=== PATIENT | female | born 1995 | race Caucasian/White ===

== ENCOUNTER 2016-08-11 13:12 | Outpatient (CLI) | payer OTHER ==
[2016-08-11] MEDS ORDERED: ALBUTEROL NEB 2.5 MG/3 ML INH ONE (13:37)
== END 2016-08-11 13:13 | disposition home or self-care (01) ==
DX: R06.02 Shortness of breath (principal)
CPT/HCPCS: 94060; 94664; 94729; J7613

== ENCOUNTER 2019-08-22 16:49 | Outpatient (CLI) | payer OTHER ==
[2019-08-22 17:15] LABS: BASOPHILS # (AUTO) 0.1 10^3/uL (0.0-0.1); BASOPHILS % (AUTO) 0.4 %; EOSINOPHILS # (AUTO) 0.1 10^3/uL (0.0-0.7); EOSINOPHILS % (AUTO) 0.6 %; HGB - HEMOGLOBIN 14.3 g/dL (12.0-16.0); LYMPHOCYTES # (AUTO) 3.3 10^3/uL (1.5-3.5); MEAN CORPUSCULAR HEMOGLOBIN 29.5 pg (27.0-31.0); MEAN CORPUSCULAR HGB CONC 34.2 g/dL (32.0-36.0); MEAN CORPUSCULAR VOLUME 86.2 fL (81.0-99.0); MONOCYTES # (AUTO) 0.9 10^3/uL (0.0-1.0); MONOCYTES % (AUTO) 6.4 %; NEUTROPHILS # (AUTO) 9.4 10^3/uL (1.5-6.6); NEUTROPHILS % (AUTO) 68.2 %; PLT - PLATELET COUNT 409 10^3/uL (130-450); RED BLOOD COUNT 4.85 10^6/uL (4.20-5.40); RED CELL DISTRIBUTION WIDTH 13.1 % (12.0-15.0); WHITE BLOOD COUNT 13.8 x10^3/uL (4.8-10.8)
[2019-08-22 17:17] LABS: ALBUMIN 4.3 g/dL (3.2-5.5); ALBUMIN/GLOBULIN RATIO 1.2 (1.0-2.2); BILIRUBIN,TOTAL 0.8 mg/dL (0.2-1.0); CALCIUM 8.8 mg/dL (8.5-10.3); CREATININE 0.7 mg/dL (0.4-1.0); TOTAL PROTEIN 7.8 g/dL (6.7-8.2)
--- NOTE | 2019-08-22 20:43 | Ultrasound Report ---
Reason: RUQ PAIN Procedure Date: 08/22/2019 Accession Number: [id number] / [id number] Procedure: US - Abdomen Limited CPT Code: Addended Final Report FULL RESULT: EXAM: ABDOMEN ULTRASOUND LIMITED, RUQ EXAM DATE: 08/22/2019 08:09 PM. CLINICAL HISTORY: RUQ PAIN. COMPARISON: None. TECHNIQUE: Real-time scanning was performed with static images obtained. FINDINGS: Liver: Normal in size and echotexture. 14.3 cm. Main portal vein flow: Hepatopetal. Gallbladder: There is cholelithiasis with several mobile stones. The gallbladder wall is thickened and edematous, measuring about 7-9 mm in diameter. Reportedly positive sonographic Harp sign. Biliary System: CBD measures 2 mm. No intrahepatic or extrahepatic ductal dilatation. Other: The right kidney is unremarkable without hydronephrosis. The visualized portion of the pancreas is unremarkable. IMPRESSION: Cholelithiasis with findings suspicious for acute cholecystitis. RAD[facility] The call report notification system was initiated by Dr. Elias Crow at 08:38 PM on 08/22/2019. ADDENDUM: 08/22/19 21:09 The above call report findings were discussed with Dr. Banks by Dr. Elias Crow at 09:09 PM on 08/22/2019.
== END 2019-08-22 16:50 | disposition home or self-care (01) ==
LOC: DI 16:49
PROVIDERS: ATTEND Physician Assistant
DX: K80.20 Calculus of gallbladder without cholecystitis without obstruction (principal)
CPT/HCPCS: 36415; 76705; 80053; 83690; 85025

== ENCOUNTER 2019-08-22 21:39 | Observation (INO) | payer OTHER ==
[2019-08-22] MEDS ORDERED: ONDANSETRON 4 MG/2 ML VIAL IVP STA (22:02)
[2019-08-22] MEDS ORDERED: levoFLOXacin 500 MG/100 ML 500 MG/100 ML BAG IV ONE (22:05)
[2019-08-22] MEDS ORDERED: HYDROmorphone 0.5 MG/0.5 ML SYRINGE IVP PRN (22:11)
[2019-08-22] MEDS ORDERED: SODIUM CHLORIDE FLUSH 0.9% 10 ML SYRINGE IVP PRN (22:11)
--- NOTE | 2019-08-22 22:11 | ED Physician Documentation ---
PD HPI ABD PAIN - Stated complaint Stated Complaint: NAUSEA - Chief complaint Chief Complaint: Abd Pain - History obtained from History obtained from: Patient (Pt presents after receiving a call from her outpatient physician who advised her to come to the ER for possible cholecystitis. Pt states she's been having a year of intermittent mid epgiastric/ruq pain radiating into her back, started during but has persisted intermittently. Pain never severe, just dull and aching. Yesterday she had more intense pain and severe nausea so was seen by PCP today who ordered labs and a RUQ US. Per US she has findings c/w cholecystitis. She has a mild leukocytosis, no fever. Denies cp, dyspnea, cough or URI sx, dysuria or other urinary sx, vaginal bleeding.) Review of Systems Constitutional: reports: Reviewed and negative Eyes: reports: Reviewed and negative Ears: reports: Reviewed and negative Nose: reports: Reviewed and negative Throat: reports: Reviewed and negative Cardiac: reports: Reviewed and negative Respiratory: reports: Reviewed and negative GI: reports: Abdominal Pain, Nausea. denies: Abdominal Swelling, Vomiting, Constipation, Diarrhea, Hematemesis, Bloody / black stool : reports: Reviewed and negative Skin: reports: Reviewed and negative PD PAST MEDICAL HISTORY - Past Medical History : Kidney stones Psych: Depression - Past Surgical History Past Surgical History: Yes HEENT: Tonsil/Adenoidectomy - Present Medications Home Medications: Ambulatory Orders Medication Instructions Recorded Confirmed Fluoxetine HCl [Prozac] 10 mg 04/25/15 04/25/15 Phenazopyridine [Pyridium] 200 mg PO TID 5 Days tablet 04/25/15 Sulfamethoxazole/Trimethoprim 1 each PO BID #10 tablet 04/25/15 [Bactrim Ds Tablet] HYDROcod/ACETAM 5/325 [[place] 5/325] 1 ea PO Q6H PRN #15 tablet 12/24/15 Ibuprofen [Motrin] 400 mg PO Q6H PRN #30 tablet 12/24/15 Ondansetron Odt [Zofran] 4 mg TL Q6H PRN #10 tablet 12/24/15 Tamsulosin [Flomax] 0.4 mg PO DAILY #7 capsule 12/24/15 - Allergies Allergies/Adverse Reactions: Allergies Allergy/AdvReac Type Severity Reaction Status Date / Time amoxicillin Allergy Edema Verified 08/22/19 21:57 - Social History Does the pt smoke?: No Smoking Status: Never smoker Does the pt drink ETOH?: No Does the pt have substance abuse?: No - Immunizations Immunizations are current?: Yes PD ED PE NORMAL - Vitals Vital signs reviewed: Yes - General General: Alert and oriented X 3, No acute distress, Well developed/nourished - HEENT HEENT: Atraumatic, Moist mucous membranes - Neck Neck: Supple, no meningeal sign, No adenopathy - Cardiac Cardiac: RRR, No murmur, No gallop, No rub - Respiratory Respiratory: No respiratory distress, Clear bilaterally - Abdomen Abdomen: Normal bowel sounds, Soft, Non distended, No organomegaly, Other (mild RUQ ttp) - Back Back: No CVA TTP - Derm Derm: Normal color, Warm and dry, No rash - Extremities Extremities: No deformity, No tenderness to palpate, Normal ROM s pain, No edema, No calf tenderness / cord - Neuro Neuro: Alert and oriented X 3 Eye Opening: Spontaneous Motor: Obeys Commands Verbal: Oriented GCS Score: 15 Results - Vitals Vitals: Vital Signs - 24 hr 08/22/19 08/22/19 21:45 21:59 Temperature 37.2 C Heart Rate 81 82 Respiratory 16 16 Rate Blood Pressure 123/71 123/91 H O2 Saturation 98 99 Oxygen O2 Source Room air PD MEDICAL DECISION MAKING - ED course Complexity details: reviewed results, re-evaluated patient, considered differential, d/w patient, d/w test consultant ED course: Pt presented after an outpatient RUQ US showed likely cholecystitis. She is afebrile and hemodynamically stable. I d/w the surgeon on-call who plans to take pt in the AM. We will place and IV and given Levaquin/Flagyl given PCN allergy and prn pain control and antiemetics. Pt last ate about 12 hours ago, last drank about 3 hours ago. She will remain NPO. Pt updated on plan and is agreeable to stay for surgical intervention in the AM. Surgeon to place admit orders.
[2019-08-22] MEDS: SODIUM CHLORIDE 0.9% 1,000 ML IV SCH (22:26)
[2019-08-22] MEDS ORDERED: metroNIDAZOLE 500 MG/100 ML 500 MG/100 ML BAG IV SCH (23:00)
[2019-08-22] MEDS ORDERED: ONDANSETRON 4 MG/2 ML VIAL IVP PRN (23:44)
[2019-08-23] MEDS: SODIUM CHLORIDE FLUSH 0.9% 10 ML SYRINGE IVP SCH ×2 (00:31→08:37)
[2019-08-23] MEDS: FAMOTIDINE 20 MG/2 ML SYRINGE IVP SCH ×2 (00:31→08:37)
[2019-08-23 02:50] LABS: HCG UR QUAL NEGATIVE
[2019-08-23 05:04] LABS: BASOPHILS # (AUTO) 0.1 10^3/uL (0.0-0.1); BASOPHILS % (AUTO) 0.7 %; EOSINOPHILS # (AUTO) 0.1 10^3/uL (0.0-0.7); EOSINOPHILS % (AUTO) 1.1 %; HGB - HEMOGLOBIN 12.7 g/dL (12.0-16.0); LYMPHOCYTES # (AUTO) 3.5 10^3/uL (1.5-3.5); LYMPHOCYTES % (AUTO) 33.6 %; MEAN CORPUSCULAR HEMOGLOBIN 29.2 pg (27.0-31.0); MEAN CORPUSCULAR HGB CONC 33.1 g/dL (32.0-36.0); MEAN CORPUSCULAR VOLUME 88.3 fL (81.0-99.0); MEAN PLATELET VOLUME 9.2 fL (7.9-10.8); MONOCYTES # (AUTO) 0.8 10^3/uL (0.0-1.0); MONOCYTES % (AUTO) 7.9 %; NEUTROPHILS # (AUTO) 5.9 10^3/uL (1.5-6.6); NEUTROPHILS % (AUTO) 56.2 %; PLT - PLATELET COUNT 329 10^3/uL (130-450); RED BLOOD COUNT 4.35 10^6/uL (4.20-5.40); RED CELL DISTRIBUTION WIDTH 13.3 % (12.0-15.0); WHITE BLOOD COUNT 10.5 x10^3/uL (4.8-10.8)
[2019-08-23 05:10] LABS: ALBUMIN 3.8 g/dL (3.2-5.5); ALBUMIN/GLOBULIN RATIO 1.2 (1.0-2.2); BILIRUBIN,TOTAL 0.3 mg/dL (0.2-1.0); CALCIUM 8.7 mg/dL (8.5-10.3); CREATININE 0.9 mg/dL (0.4-1.0); TOTAL PROTEIN 7.1 g/dL (6.7-8.2)
[2019-08-23] MEDS ORDERED: metroNIDAZOLE 500 MG/100 ML 500 MG/100 ML BAG IV SCH (06:00)
[2019-08-23] MEDS: SODIUM CHLORIDE 0.9% 1,000 ML IV SCH (08:37)
--- NOTE | 2019-08-23 08:47 | PHARMACY PROGRESS NOTE ---
- Best Possible Medication History Admit Date and Time: 08/22/192210 Processed by: Pharmacy Medication History completed: Yes Secondary Source(s): Prescription bottles, Physician records, Pharmacy records As the person ultimately responsible for medication therapy, providers are able to order a medication from an existing home medication list in [facility] via the "Reconcile Routine" prior to Confirmation of that medication by customer support executive. Such practice is discouraged except when the physician, in their clinical judgment, deems that a medical need exists for a medication without regard to previous use.
--- NOTE | 2019-08-23 09:51 | HISTORY & PHYSICAL EXAMINATION ---
Chief Complaint - Chief Complaint Chief Complaint: RUQ epigastric abdominal pain Abdominal Pain HPI - Admitted From Admitted from: ED - History Obtained From Records Reviewed: RN notes reviewed, Old records reviewed History obtained from: Patient, Other (ER provider) - History of Present Illness Severity at the worst: Moderate Pain Quality: Aching, Cramping Context-Pain started w/: Eating Timing: Gradual onset Duration: Hours: (6), Days: Improved with: Nothing Worsened by: Eating Associated symptoms: Nausea, Vomiting HPI Comment/Other: Amarilis is a very pleaseant 23 yo WF who is 1 yo post who has been having episodes intermittent mid epgiastric/ruq pain radiating into her back, started during but has persisted intermittently. Pain is mild-moderate until this episode, just dull and aching. Yesterday she had more intense pain and severe nausea so was seen by PCP today who ordered labs and a RUQ US. Per US she has findings c/w cholecystitis. She has a mild leukocytosis, no fever. Denies cp, dyspnea, cough or URI sx, dysuria or other urinary sx, vaginal bleeding. She was called and told to go to the ER for evaluation and I was contacted for admission. PMH/PSH - Past Medical History Cardiovascular: positive: None Respiratory: positive: Asthma Neuro: positive: None Endocrine/Autoimmune: positive: None GI: positive: None : positive: Kidney stones Psych: positive: Depression, Anxiety, Obsessive compulsive disorder Musculoskeletal: positive: None Derm: positive: None MRSA Hx?: No - Past Surgical History HEENT: positive: Tonsil/Adenoidectomy Social & Family Hx - Social History Does the pt smoke?: No Smoking Status: Never smoker Does the pt drink ETOH?: No Does the pt have substance abuse?: No - POLST Patient has POLST: No Meds/Allgy - Home Medications Home Medications: Ambulatory Orders Medication Instructions Recorded Confirmed Albuterol Sulfate [Albuterol 2 puffs INH Q4H PRN 08/23/19 08/23/19 Sulfate Hfa] Cetirizine [ZyrTEC] 10 mg PO DAILY 08/23/19 08/23/19 Citalopram Hydrobromide 20 mg PO DAILY 08/23/19 08/23/19 [Citalopram HBr] Fluticasone 44 Mcg [Flovent] 2 puffs INH BID 08/23/19 08/23/19 - Allergies Allergies/Adverse Reactions: Allergies Allergy/AdvReac Type Severity Reaction Status Date / Time amoxicillin Allergy Edema Verified 08/22/19 21:57 Review of Systems - Constitutional Constitutional: reports: Fatigue, Poor appetite - Eyes Eyes: denies: Pain, Irritation - Ears, Nose & Throat Ears, Nose & Throat: denies: Ear pain, Hearing loss - Cardiovascular Cariovascular: denies: Irregular heart rate, Palpitations, Chest pain - Respiratory Respiratory: denies: Cough, Sputum production, Wheezing - Gastrointestinal Gastrointestinal: reports: Abdominal pain (Per HPI) - Genitourinary Genitourinary: denies: Dysuria, Frequency, Urgency - Musculoskeletal Musculoskeletal: denies: Muscle pain, Back pain - All Other Systems All Other Systems: reports: Reviewed and negative Exam - Vital Signs Reviewed Vital Signs: Yes Vital Signs: Vital Signs x48h Temp Pulse Resp BP Pulse Ox 08/23/19 08:00 36.9 C 67 20 118/71 99 08/23/19 05:31 36.8 C 74 16 100/57 L 99 - Physical Exam General Appearance: positive: No acute distress Eyes Bilateral: positive: Normal inspection, No scleral icterus ENT: positive: ENT inspection nml Neck: positive: Nml inspection Respiratory: positive: No respiratory distress, Breath sounds nml Cardiovascular: positive: Regular rate & rhythm Abdomen: positive: Other (Focal tenderness with positive Harp's with pain with RUQ palpation, no peritoneal signs, no R/G/R BS present) Skin: positive: Color nml, No rash, Warm, Dry Extremities: positive: Full ROM, Nml appearance Neurologic/Psychiatric: positive: Oriented x3, Mood/affect nml Results - Lab Results Fish Bones: 08/23/19 04:45 08/23/19 04:45 Other Lab Results: Lab Results x24hrs 08/23/19 08/23/19 08/23/19 Range/Units 04:45 04:45 00:30 WBC 10.5 (4.8-10.8) x10^3/uL RBC 4.35 (4.20-5.40) 10^6/uL Hgb 12.7 (12.0-16.0) g/dL Hct 38.4 (37.0-47.0) % MCV 88.3 (81.0-99.0) fL MCH 29.2 (27.0-31.0) pg MCHC 33.1 (32.0-36.0) g/dL RDW 13.3 (12.0-15.0) % Plt Count 329 (130-450) 10^3/uL MPV 9.2 (7.9-10.8) fL Neut # (Auto) 5.9 (1.5-6.6) 10^3/uL Lymph # (Auto) 3.5 (1.5-3.5) 10^3/uL [place] # (Auto) 0.8 (0.0-1.0) 10^3/uL Eos # (Auto) 0.1 (0.0-0.7) 10^3/uL Baso # (Auto) 0.1 (0.0-0.1) 10^3/uL Absolute Nucleated RBC 0.00 x10^3/uL Nucleated RBC % 0.0 /100WBC Sodium 136 (135-145) mmol/L Potassium 3.9 (3.5-5.0) mmol/L Chloride 102 (101-111) mmol/L Carbon Dioxide 25 (21-32) mmol/L Anion Gap 9.0 (6-13) BUN 12 (6-20) mg/dL Creatinine 0.9 (0.4-1.0) mg/dL Estimated GFR (MDRD) 78 L (>89) Glucose 97 (70-100) mg/dL Calcium 8.7 (8.5-10.3) mg/dL Total Bilirubin 0.3 (0.2-1.0) mg/dL AST 18 (10-42) IU/L ALT 16 (10-60) IU/L Alkaline Phosphatase 66 (42-121) IU/L Total Protein 7.1 (6.7-8.2) g/dL Albumin 3.8 (3.2-5.5) g/dL Globulin 3.3 (2.1-4.2) g/dL Albumin/Globulin Ratio 1.2 (1.0-2.2) Ur Specific [place] 1.020 (1.002-1.030) Urine HCG, Qual NEGATIVE - Diagnostic Imaging Results Diagnostic Imaging Results: positive: Final report reviewed, Read independently Diagnostic Imaging Results Comments: US shows multiple medium sized gall stones with thickened posterior wall of the gallbladder Impression/Plan - Problem List Problem List: Amarilis is a 23 yo WF with acute cholecystitis secondary to gallstones with repeat and worsening attacks over the last year. In depth, discussion with the patient was held. We went through the normal anatomy and physiology, we then discussed the pathophysiology of the disease and lastly the possible etiologies and how her may have affected the development of her stones. We discussed their specific clinical, laboratory and imaging findings. We then went through the indications for the surgery and the alternatives including open vs laparoscopic approach, use of antibiotics vs surgery, and ABX observation and delayed surgery. WE discussed how the surrent COVID pandemic effects our decision making. We reviewed the risks, the benefits and potential short term and intermodal dispatcher complications of each of the options. We went through the success rates of each option as related to clinical and imagining findings. They have expressed understanding of the operations complications including but not limited to bleeding, infection, persistent symptoms, open operation, injury to neighboring structures such as the bile duct/liver/bowel/major arteries and veins, bile leak following surgery, missed or retained common bile duct stones, as well as anesthetic complications including blood clots, heart attack, stroke and were explained to the patient. The patient understands and accepts these risks. Their questions were answered to their satisfaction and they have requested to proceed with surgery and giving her progressive symptoms over the last year it is likely she will continue to to have episodes and they are likely to escalate in nature. Informed consent was obtained.
[2019-08-23] MEDS ORDERED: LIDOCAINE 1%-EPI 1:100000 20 ML MDV ONE (10:12)
[2019-08-23] MEDS ORDERED: LACTATED RINGERS 500 ML IV ONE (10:34)
[2019-08-23] MEDS ORDERED: GLYCOPYRROLATE 1 MG/5 ML VIAL IVP ONE (10:34)
[2019-08-23] MEDS ORDERED: ONDANSETRON 4 MG/2 ML VIAL IVP ONE (10:34)
[2019-08-23] MEDS ORDERED: MIDAZOLAM 2 MG/2 ML VIAL IVP ONE (10:34)
[2019-08-23] MEDS ORDERED: KETOROLAC 30 MG/ML VIAL IVP ONE (10:34)
[2019-08-23] MEDS ORDERED: PROPOFOL 200 MG/20 ML VIAL IVP ONE (10:34)
[2019-08-23] MEDS ORDERED: ROCURONIUM 50 MG/5 ML VIAL IVP ONE (10:34)
[2019-08-23] MEDS ORDERED: PROPOFOL 1000 MG/100 ML 100 ML IV ONE (10:34)
[2019-08-23] MEDS ORDERED: NEOSTIGMINE 1 MG/1 ML 10 ML MDV IVP ONE (10:34)
[2019-08-23] MEDS ORDERED: SCOPOLAMINE PATCH TOP ONE ×2 (10:34)
[2019-08-23] MEDS ORDERED: fentaNYL 250 MCG/5 ML VIAL IVP ONE (10:34)
[2019-08-23] MEDS ORDERED: DEXAMETHASONE 4 MG/ML VIAL IVP ONE (10:34)
[2019-08-23] MEDS ORDERED: LIDOCAINE 1%-EPI 1:100000 20 ML MDV SUBQ ONE (10:54)
--- NOTE | 2019-08-23 11:02 | ANESTHESIA ---
Pre-Anesthesia VS, & Labs - Diagnosis acute cholecystitis - Procedure laparoscopic cholecystectomy Vital Signs: Temp Pulse Resp BP Pulse Ox 36.9 C 67 20 118/71 99 08/23/19 08:00 08/23/19 08:00 08/23/19 08:00 08/23/19 08:00 08/23/19 08:00 Height 5 ft 3 in Weight (kg) 90 kg Body Mass Index 35.1 - Is Patient ?: No - Lab Results Current Lab Results: Laboratory Tests 08/23/19 04:45: Sodium 136, Potassium 3.9, Chloride 102, Carbon Dioxide 25, Anion Gap 9.0, BUN 12, Creatinine 0.9, Estimated GFR (MDRD) 78 L, Glucose 97, Calcium 8.7, Total Bilirubin 0.3, AST 18, ALT 16, Alkaline Phosphatase 66, Total Protein 7.1, Albumin 3.8, Globulin 3.3, Albumin/Globulin Ratio 1.2 08/23/19 04:45: WBC 10.5, RBC 4.35, Hgb 12.7, Hct 38.4, MCV 88.3, MCH 29.2, MCHC 33.1, RDW 13.3, Plt Count 329, MPV 9.2, Neut # (Auto) 5.9, Lymph # (Auto) 3.5, [place] # (Auto) 0.8, Eos # (Auto) 0.1, Baso # (Auto) 0.1, Absolute Nucleated RBC 0.00, Nucleated RBC % 0.0 Lab results reviewed: Yes Fish Bones: 08/23/19 04:45 08/23/19 04:45 Home Medications and Allergies Home Medications: Ambulatory Orders Albuterol Sulfate [Albuterol Sulfate Hfa] 2 puffs INH Q4H PRN 08/23/19 Cetirizine [ZyrTEC] 10 mg PO DAILY 08/23/19 Citalopram Hydrobromide [Citalopram HBr] 20 mg PO DAILY 08/23/19 Fluticasone 44 Mcg [Flovent] 2 puffs INH BID 08/23/19 Active Medications Famotidine (Pepcid) 20 mg IVP BID MANE Last Admin: 08/23/19 08:37 Dose: 20 mg Hydromorphone HCl (Dilaudid Inj Syringe) 0.5 mg IVP Q2H PRN PRN Reason: Pain 8 to 10 Sodium Chloride (Normal Saline 0.9%) 1,000 mls @ 100 mls/hr IV .Q10H MANE Last Admin: 08/23/19 08:37 Dose: 100 mls/hr Levofloxacin (Levaquin 750 Mg/150 Ml) 750 mg in 150 mls @ 100 mls/hr IV Q24H MANE Metronidazole (Flagyl 500 Mg/100 Ml) 500 mg in 100 mls @ 100 mls/hr IV Q8HR [facility] Last Infusion: 08/23/19 08:48 Dose: Infused Ondansetron HCl (Zofran Inj) 4 mg IVP Q4HR PRN PRN Reason: Nausea / Vomiting Last Admin: 08/23/19 08:42 Dose: 4 mg Sodium Chloride (Normal Saline Flush 0.9%) 10 ml IVP PRN PRN PRN Reason: NEEDED PER PROVIDER ORDERS Sodium Chloride (Normal Saline Flush 0.9%) 10 ml IVP 0100,0900,1700 [facility] Last Admin: 08/23/19 08:37 Dose: 10 ml Albuterol Sulfate [Albuterol Sulfate Hfa] 2 puffs INH Q4H PRN 08/23/19 Cetirizine [ZyrTEC] 10 mg PO DAILY 08/23/19 Citalopram Hydrobromide [Citalopram HBr] 20 mg PO DAILY 08/23/19 Fluticasone 44 Mcg [Flovent] 2 puffs INH BID 08/23/19 Allergies/Adverse Reactions: Allergies Allergy/AdvReac Type Severity Reaction Status Date / Time amoxicillin Allergy Edema Verified 08/22/19 21:57 Anes History & Medical History - Anesthetic History Anesthesia Complications: reports: Post-Operative Nausea/Vomiting (hx of motion sickness) Family history of Anesthesia Complications: Denies Family history of Malignant Hyperthermia: Denies - Medical History Cardiovascular: reports: None Pulmonary: reports: Asthma Gastrointestinal: reports: None Urinary: reports: Kidney stones Neuro: reports: None Musculoskeletal: reports: None Endocrine/Autoimmune: reports: None Blood Disorders: reports: None Skin: reports: None Smoking Status: Never smoker Other Past Medical History: obesity - Surgical History Eyes Ears Nose Throat (EENT): Tonsil/Adenoidectomy Exam General: Alert, Oriented x3, Cooperative Dental: WNL Mouth Openin Fingerbreadth Neck Mobility: Normal Mallampati classification: I Thyromental Distance: less than 4 cm Respiratory: Lungs clear Cardiovascular: Regular rate Plan Anesthesia Type: General Consent for Procedure(s) Verified and Reviewed: Yes Code Status: Attempt Resuscitation ASA classification: 2-Mild systemic disease Is this case an emergency?: No
[2019-08-23] MEDS ORDERED: LACTATED RINGERS 1,000 ML IV ONE (11:25)
--- NOTE | 2019-08-23 12:00 | OPERATIVE REPORT ---
Operative Report - General Admit Date: 08/22/19 Pre-Op Diagnosis: acute cholecystitis secondary to cholelithiasis Procedure Performed: Laparoscopic cholecystectomy Post Op Diagnosis: same - Procedure Note Primary Surgeon: Kalina Rao MD Anesthesia Technique: General ET tube Pathology: gallbladder Estimated Blood Loss (mL): 25 Indications: Amarilis is a very pleaseant 23 yo WF who was admitted for acute cholecystitis secondary to cholelithiasis. She is 1 yo post who has been having episodes intermittent mid epgiastric/ruq pain radiating into her back, started during but has persisted intermittently. Pain is mild-moderate until this episode, just dull and aching. Yesterday she had more intense pain and severe nausea so was seen by PCP today who ordered labs and a RUQ US. Per US she has findings c/w cholecystitis. She has a mild leukocytosis, no fever. Denies cp, dyspnea, cough or URI sx, dysuria or other urinary sx, vaginal bleeding. She was called and told to go to the ER for evaluation and I was contacted for admission. Findings: acute inflamed gallbladder and cholethiasis Complications: none - Other Other Information/Narrative: Patient is a 23 yo with the diagnosis of acute cholecystitis secondary to cholelithiasis, the patient was offered laparoscopy cholecystectomy. After discussing the indications, alternatives, risks and potential complications with the patient, informed consent was obtained. The patient was taken to the operating room. After transfer to the operating room, the patient was placed in the supine position. After the induction of adequate general endotracheal anesthesia, the patient was prepped and draped in the usual sterile fashion. A surgical time out was performed confirming the correct patient and procedure. The periumbilical area was anesthetized and a vertical incision was made just below the umbilicus. Dissection with s-retractors was taken down to the midline fascia was identified and incised vertically and the peritoneal cavity entered under direct visualization. A 12 mm cannula was inserted under direct visualization. The abdomen was then insufflated with CO2 to 15 mm Hg pressure. Under direct visualization, one 5 mm epigastric and two 5 mm right subcostal trocars were placed after these areas were anesthetized. The abdomen was inspected and no other obvious cause for the patient's symptoms was identified. The gallbladder was grasped first at the fundus and then at the neck. The gallbladder appeared acutely inflamed. Adhesions were taken down with blunt dissection and hemostasis achieved with cautery. The cystic duct and common bile duct junction was identified and avoided. The cystic duct and cystic artery were dissected out and multiply clipped and transected. The gallbladder was then dissected off of the undersurface of the liver with the cautery and removed via an endo pouch through the umbilical port site. The right upper quadrant was inspected and hemostasis established with the ca utery. The clips sites were visualized and the clips were intact. There was no evidence of bleeding nor bile leak. The area was then irrigated and the fluid aspirated from the abdomen. There were no other abnormalities noted in the abdomen. The abdomen was decompressed of the CO2 and the trocars were removed under direct visualization. The fascia was closed at the umbilicus with the 0 Vicryl stitch and the wounds were irrigated. The skin was closed with 4-0 Monocryl subcuticular sutures.Dermal adhesive dressing was applied as were dry dressings. Patient was then extubated and taken to the PACU in stable condition. The patient tolerated the procedure well. All counts were correct. There were no complications. The specimen was sent to Pathology.
[2019-08-23] MEDS ORDERED: HYDROmorphone 0.5 MG/0.5 ML SYRINGE IVP PRN (12:05)
[2019-08-23] MEDS ORDERED: HYDROcod/ACETAM 10 MG/325 MG TABLET PO PRN (12:05)
[2019-08-23] MEDS ORDERED: ONDANSETRON 4 MG/2 ML VIAL IVP PRN (12:05)
--- NOTE | 2019-08-23 12:10 | Discharge Plan ---
Discharge Plan Problem Reviewed?: Yes Disposition: Home, Self Care Condition: Stable Prescriptions: HYDROcod/ACETAM 5/325 [[place] 5/325] 2 tab PO Q4HR PRN #20 tablet PRN Reason: Pain Diet: Regular Activity Restrictions: Activity as Tolerated Shower Restrictions: No (no bath tubs/soaking for 7 days) Driving Restrictions: Yes (no driving until off pain medication. ) Weight Bearing: Full Weight Instruction Topics: Cholecystectomy Laparoscopic, Cholecystectomy Laparoscopic Dc Additional Instructions or Follow Up instructions: Patient may return to work on Tuesday, September 03, 2019 without restrictions. No Smoking: If you smoke, Please STOP! Call for help. Follow-up with: Marie Banks PA [Primary Care Provider] - 1 Week Beny Rodriguez MD [Provider Admit Priv/Credential] - 2 Weeks
[2019-08-23 15:21] VITALS: BP 125/82
[2019-08-23] MEDS ORDERED: levoFLOXacin 750 MG/150 ML 750 MG/150 ML BAG IV SCH (22:00)
--- NOTE | 2019-08-24 10:17 | PROVIDER PROGRESS NOTE ---
Subjective - General Admit Date: 08/22/19 Procedure Date: 08/23/19 Post Op Days: 1 Procedure Performed: Laparoscopic cholecystectomy - Review of Systems Wound/Incisions: positive: Healing well General: positive: No symptoms HEENT: positive: No symptoms Gastrointestinal: positive: No symptoms. negative: Nausea, Vomiting All Other Systems: positive: Reviewed and negative Objective - Patient Data Reviewed Vital Signs: Yes Weight: Weight 08/22/19 08/23/19 08/24/19 23:59 23:59 23:59 Weight (kg) 90 kg Intake & Output: Intake and Output Totals x24h 08/22/19 08/23/19 08/24/19 23:59 23:59 23:59 Intake Total 1320 Output Total 1500 Balance -180 - Lab Results Lab Results: 08/23/19 04:45 08/23/19 04:45 - Physical Exam Wound/Incisions: positive: Healing well General Appearance: positive: No acute distress Respiratory: positive: Breath sounds nml Cardiovascular: positive: Regular rate & rhythm Abdomen: positive: Non-tender Impression/Plan - Problem List Problem List: Acute Cholecystitis due to cholelithaisis s/p lap kaushal. Patient is doing well, pain controlled no nausea, tolerating clears. OK to discharge home and follow up outpatient clinic
== END 2019-08-23 15:20 | disposition home or self-care (01) ==
LOC: ED 21:39 → MS2 22:11
PROVIDERS: ADMIT Surgery; ATTEND Surgery
PROC: 0FT44ZZ Resection of Gallbladder, Percutaneous Endoscopic Approach (ICD-10-PCS; principal; 2019-08-22)
DX: K80.12 Calculus of gallbladder with acute and chronic cholecystitis without obstruction (principal); J45.909 Unspecified asthma, uncomplicated; E66.9 Obesity, unspecified; Z68.35 Body mass index [BMI] 35.0-35.9, adult
CPT/HCPCS: 36415; 47562; 76705; 80053; 81025; 83690; 85025; 99284; 99285; A9270; G0378; J3010; J3490; J7120

== ENCOUNTER 2019-12-28 14:04 | Emergency (ER) | payer OTHER ==
[2019-12-28 14:32] LABS: BASOPHILS # (AUTO) 0.1 10^3/uL (0.0-0.1); BASOPHILS % (AUTO) 0.8 %; EOSINOPHILS # (AUTO) 0.1 10^3/uL (0.0-0.7); EOSINOPHILS % (AUTO) 1.2 %; HGB - HEMOGLOBIN 13.9 g/dL (12.0-16.0); LYMPHOCYTES # (AUTO) 2.1 10^3/uL (1.5-3.5); LYMPHOCYTES % (AUTO) 23.8 %; MEAN CORPUSCULAR HEMOGLOBIN 29.3 pg (27.0-31.0); MEAN CORPUSCULAR HGB CONC 33.4 g/dL (32.0-36.0); MEAN CORPUSCULAR VOLUME 87.8 fL (81.0-99.0); MONOCYTES # (AUTO) 0.6 10^3/uL (0.0-1.0); PLT - PLATELET COUNT 371 10^3/uL (130-450); RED BLOOD COUNT 4.74 10^6/uL (4.20-5.40); RED CELL DISTRIBUTION WIDTH 12.6 % (12.0-15.0); WHITE BLOOD COUNT 8.9 x10^3/uL (4.8-10.8)
[2019-12-28 14:43] LABS: ALBUMIN 4.3 g/dL (3.2-5.5); ALBUMIN/GLOBULIN RATIO 1.2 (1.0-2.2); BILIRUBIN,TOTAL 0.7 mg/dL (0.2-1.0); CALCIUM 9.4 mg/dL (8.5-10.3); CREATININE 0.8 mg/dL (0.4-1.0); TOTAL PROTEIN 7.8 g/dL (6.7-8.2)
[2019-12-28 15:36] LABS: BILIRUBIN,URINE NEGATIVE (NEGATIVE); GLUCOSE, URINE (UA) NEGATIVE (NEGATIVE); KETONES,URINE (UA) NEGATIVE (NEGATIVE); LEUKOCYTE ESTERASE, URINE NEGATIVE (NEGATIVE); NITRITE,URINE NEGATIVE (NEGATIVE); OCCULT BLOOD,URINE NEGATIVE (NEGATIVE); PH,URINE 6.5 PH (5.0-7.5); PROTEIN,URINE NEGATIVE (NEGATIVE); UROBILINOGEN,URINE 0.2 (NORMAL) E.U./dL (NORMAL)
[2019-12-28 15:39] LABS: CLARITY,URINE CLEAR (CLEAR); HCG UR QUAL NEGATIVE
[2019-12-28] MEDS ORDERED: IOVERSOL 320 100 ML VIAL IVP ONE ×2 (16:35→17:13)
--- NOTE | 2019-12-28 17:00 | CT Report ---
PROCEDURE: Abdomen/Pelvis W INDICATIONS: RLQ abd pain CONTRAST: IV CONTRAST: Optiray 320 ml: 100 PO CONTRAST: *NO PO CONTRAST TECHNIQUE: After the administration of intravenous contrast, 5 mm thick sections acquired from the diaphragms to the symphysis. 5 mm thick coronal and sagittal reformats were acquired. For radiation dose reducti on, the following was used: automated exposure control, adjustment of mA and/or kV according to sowmya ent size. COMPARISON: None. FINDINGS: Image quality: Excellent. ABDOMEN: Lung bases: Lung bases are clear. Heart size is normal. Solid organs: Liver and spleen are normal in size and enhancement. Gallbladder surgically absent. Biliary system is non dilated. Pancreas enhances normally. No adrenal nodules. Kidneys demonstrate normal size and enhancement, without hydronephrosis. Peritoneum and bowel: Bowel loops demonstrate normal wall thickness and caliber. Small amount of brina e fluid in the pelvis. No free air or abscess. A normal appendix is identified. Nodes and vessels: No retroperitoneal or mesenteric adenopathy by size criteria. Aorta and inferior vena cava are normal in size. Miscellaneous: No ventral hernias. PELVIS: Genitourinary: Bladder wall thickness is normal. Miscellaneous: No inguinal hernias or adenopathy. There is a peripherally enhancing collapsed right adnexal cyst. An IUD is present in the uterus. Bones: No suspicious bony lesions. No vertebral body compression fractures. IMPRESSION: 1. No evidence of acute appendicitis. Normal appendix seen. 2. Collapsed hemorrhagic right ovarian cyst, possibly resulting in right lower quadrant pain findings . There is a small amount of associated free fluid in the pelvis, slightly more than physiologic. Reviewed by: Fredrick Daniel MD on 12/28/2019 4:59 PM PDT Approved by: Fredrick Daniel MD on 12/28/2019 4:59 PM PDT Station ID: [id number]
--- NOTE | 2019-12-28 17:18 | ED Physician Documentation ---
PD HPI ABD PAIN - Stated complaint Stated Complaint: RT ABD PX - Chief complaint Chief Complaint: Abd Pain - History obtained from History obtained from: Patient - History of Present Illness Timing - onset: How many weeks ago (2) Timing - duration: Weeks (2) Timing - details: Gradual onset Pain level max: 8 Pain level now: 7 Quality: Aching, Sharp, Pain Location: RLQ Radiation: No: Chest, , Lower back, Left flank, Left shoulder, Right flank, Right shoulder, Upper back Improved by: Other (nothing) Worsened by: Moving, Palpation Associated symptoms: No: Fever, Nausea, Vomiting, Hematemesis, Diarrhea, Constipation, Melena, Hematochezia, Dysuria Recently seen: Not recently seen Review of Systems Ten Systems: 10 systems reviewed and negative Constitutional: denies: Fever, Chills Nose: denies: Rhinorrhea / runny nose, Congestion Respiratory: denies: Cough GI: denies: Vomiting, Diarrhea, Hematemesis, Bloody / black stool : reports: Control (IUD). denies: Dysuria, Frequency, Hesitancy, Now EGA Skin: denies: Rash Musculoskeletal: denies: Neck pain, Back pain Neurologic: denies: Headache PD PAST MEDICAL HISTORY - Past Medical History Cardiovascular: None Respiratory: Asthma Neuro: None Endocrine/Autoimmune: None GI: None : Kidney stones Psych: Depression, Anxiety, Obsessive compulsive disorder Musculoskeletal: None Derm: None - Past Surgical History Past Surgical History: Yes HEENT: Tonsil/Adenoidectomy - Present Medications Home Medications: Ambulatory Orders Medication Instructions Recorded Confirmed Albuterol Sulfate [Albuterol 2 puffs INH Q4H PRN 08/23/19 08/23/19 Sulfate Hfa] Cetirizine [ZyrTEC] 10 mg PO DAILY 08/23/19 08/23/19 Citalopram Hydrobromide 20 mg PO DAILY 08/23/19 08/23/19 [Citalopram HBr] Fluticasone 44 Mcg [Flovent] 2 puffs INH BID 08/23/19 08/23/19 HYDROcod/ACETAM 5/325 [Helen 5/325] 2 tab PO Q4HR PRN #20 tablet 08/23/19 - Allergies Allergies/Adverse Reactions: Allergies Allergy/AdvReac Type Severity Reaction Status Date / Time amoxicillin Allergy Edema Verified 12/28/19 14:18 - Social History Does the pt smoke?: No Smoking Status: Never smoker Does the pt drink ETOH?: No Does the pt have substance abuse?: No - Immunizations Immunizations are current?: Yes - POLST Patient has POLST: No PD ED PE NORMAL - Vitals Vital signs reviewed: Yes - General General: Alert and oriented X 3, No acute distress, Well developed/nourished - HEENT HEENT: Moist mucous membranes - Neck Neck: Supple, no meningeal sign - Cardiac Cardiac: RRR - Respiratory Respiratory: No respiratory distress, Clear bilaterally - Abdomen Abdomen: Soft, Non distended, Other (Tender to palpation right lower quadrant. No peritoneal signs.) - Female Female : Pt declined - Back Back: No CVA TTP - Derm Derm: Warm and dry - Extremities Extremities: No edema - Neuro Neuro: Alert and oriented X 3 Results - Vitals Vitals: Vital Signs - 24 hr 12/28/19 12/28/19 12/28/19 14:13 16:18 17:23 Temperature 37.3 C 36.8 C Heart Rate 82 77 69 Respiratory 18 19 16 Rate Blood Pressure 121/80 108/77 111/69 O2 Saturation 97 100 98 Oxygen O2 Source Room air - Labs Labs: Laboratory Tests 12/28/19 12/28/19 12/28/19 14:25 14:25 15:26 WBC 8.9 RBC 4.74 Hgb 13.9 Hct 41.6 MCV 87.8 MCH 29.3 MCHC 33.4 RDW 12.6 Plt Count 371 MPV 9.0 Neut # (Auto) 6.0 Lymph # (Auto) 2.1 [place] # (Auto) 0.6 Eos # (Auto) 0.1 Baso # (Auto) 0.1 Absolute Nucleated RBC 0.00 Nucleated RBC % 0.0 Sodium 135 Potassium 4.0 Chloride 105 Carbon Dioxide 23 Anion Gap 7.0 BUN 11 Creatinine 0.8 Estimated GFR (MDRD) 88 L Glucose 95 Calcium 9.4 Total Bilirubin 0.7 AST 20 ALT 18 Alkaline Phosphatase 76 Total Protein 7.8 Albumin 4.3 Globulin 3.5 Albumin/Globulin Ratio 1.2 Lipase 32 Urine Color YELLOW Urine Clarity CLEAR Urine pH 6.5 Ur Specific [place] 1.020 Urine Protein NEGATIVE Urine Glucose (UA) NEGATIVE Urine Ketones NEGATIVE Urine Occult Blood NEGATIVE Urine Nitrite NEGATIVE Urine Bilirubin NEGATIVE Urine Urobilinogen 0.2 (NORMAL) Ur Leukocyte Esterase NEGATIVE Ur Microscopic Review NOT INDICATED Urine Culture Comments NOT INDICATED Urine HCG, Qual 12/28/19 15:26 WBC RBC Hgb Hct MCV MCH MCHC RDW Plt Count MPV Neut # (Auto) Lymph # (Auto) [place] # (Auto) Eos # (Auto) Baso # (Auto) Absolute Nucleated RBC Nucleated RBC % Sodium Potassium Chloride Carbon Dioxide Anion Gap BUN Creatinine Estimated GFR (MDRD) Glucose Calcium Total Bilirubin AST ALT Alkaline Phosphatase Total Protein Albumin Globulin Albumin/Globulin Ratio Lipase Urine Color Urine Clarity Urine pH Ur Specific [place] 1.020 Urine Protein Urine Glucose (UA) Urine Ketones Urine Occult Blood Urine Nitrite Urine Bilirubin Urine Urobilinogen Ur Leukocyte Esterase Ur Microscopic Review Urine Culture Comments Urine HCG, Qual NEGATIVE - Rads (name of study) CT abdomen pelvis Radiology: Prelim report reviewed, EMP read contemporaneously, See rad report PD MEDICAL DECISION MAKING - ED course Complexity details: reviewed results, re-evaluated patient, considered differential, d/w patient ED course: 24-year-old female with right lower quadrant abdominal pain. Found to have a collapsing hemorrhagic ovarian cyst. Declines pain medication for home. Was given pain medication here. Patient is well-appearing, nontoxic. Afebrile. Patient counseled regarding signs and symptoms for which I believe and urgent re-evaluation would be necessary. Patient with good understanding of and agreement to plan and is comfortable going home at this time This document was made in part using voice recognition software. While efforts are made to proofread this document, sound alike and grammatical errors may occur. 1. No evidence of acute appendicitis. Normal appendix seen. 2. Collapsed hemorrhagic right ovarian cyst, possibly resulting in right lower quadrant pain findings. There is a small amount of associated free fluid in the pelvis, slightly more than physiologic. Departure - Departure Disposition: 01 Home, Self Care Clinical Impression: Right ovarian cyst Condition: Good Instructions: ED Cyst Ovarian Follow-Up: Marie Banks PA [Primary Care Provider] - Within 1 week Comments: Have a right-sided ovarian cyst. Follow-up with your doctor for further care. The pain should improve over the next day or 2. Return if you worsen Discharge Date/Time: 12/28/19 17:27
[2019-12-28 17:23] VITALS: BP 111/69
== END 2019-12-28 17:27 | disposition home or self-care (01) ==
LOC: ED 14:04
DX: N83.201 Unspecified ovarian cyst, right side (principal); Z97.5 Presence of (intrauterine) contraceptive device
CPT/HCPCS: 36415; 74177; 80053; 81003; 81025; 83690; 85025; 99284; Q9967; 81001; 87086

== ENCOUNTER 2020-02-24 11:06 | Outpatient (CLI) | payer OTHER ==
--- NOTE | 2020-02-24 12:22 | Ultrasound Report ---
PROCEDURE: Pelvic w/Transvaginal INDICATIONS: Right pelvic pain TECHNIQUE: Real-time scanning was performed of the pelvic organs, with image documentation. Additional endovagi nal scanning was necessary due to incomplete visualization of the adnexal and endometrial structures by transabdominal scanning. COMPARISON: Correlation is made with the prior abdomen and pelvis CT, 12/28/2019. FINDINGS: This study is limited by body habitus. Transabdominal scanning: Limited scanning through the kidneys shows no hydronephrosis. A small amoun t of free pelvic fluid can be seen. Endovaginal scanning: Uterus: Uterus is normal in size at 7.7 x 3 x 4.2 cm. The uterus is heterogeneous, without focal fi broids identified. The endometrium measures 3 mm in combined thickness. An IUD is seen at the expect ed location. Ovaries: The right ovary measures 1.2 x 2.7 x 3.1 cm and the left ovary measures 4.2 x 3.1 x 3 cm. A nd demonstrates a hemorrhagic cyst that measures 3.2 x 2.3 x 2.4 cm No significant dimensional ovaria n abnormalities are seen. There are less than 12 follicles seen on each side. No adnexal masses ar e seen. IMPRESSION: A left-sided hemorrhagic cyst is seen and measures up to 3.2 cm. Please consider a short-term follow -up ultrasound in 6 weeks to ensure resolution/improvement. A small amount of free pelvic fluid is seen. An IUD is seen in place. Reviewed by: Fortunato Antonio MD on 02/24/2020 11:21 AM [facility] Approved by: Fortunato Antonio MD on 02/24/2020 11:21 AM [facility] Station ID: [id number]
== END 2020-02-24 11:07 | disposition home or self-care (01) ==
LOC: DI 11:06
PROVIDERS: ATTEND Physician Assistant
DX: N83.202 Unspecified ovarian cyst, left side (principal); Z97.5 Presence of (intrauterine) contraceptive device
CPT/HCPCS: 76830; 76856

== ENCOUNTER 2020-02-25 16:32 | Outpatient (CLI) | payer OTHER | END 2020-02-25 16:33 | disposition home or self-care (01) | LOC: COV 16:32 | PROVIDERS: ATTEND Family Medicine | DX: R05 Cough (principal); Z20.828 Contact with and (suspected) exposure to other viral communicable diseases; R53.83 Other fatigue; R09.81 Nasal congestion; J02.9 Acute pharyngitis, unspecified; R11.2 Nausea with vomiting, unspecified ==

== ENCOUNTER 2020-04-10 15:01 | Emergency (ER) | payer OTHER ==
[2020-04-10 15:15] VITALS: BP 143/84
--- NOTE | 2020-04-10 15:30 | ED Physician Documentation ---
PD HPI MHE - Stated complaint Stated Complaint: SI - Chief complaint Chief Complaint: MHE - History obtained from History obtained from: Patient - History of Present Illness Primary symptom: Suicidal ideation, Depression (Patient with a history of some mild depression longer-term and then recently reactive stress due to her wanting to separate perhaps. They have couples counseling as planned for next week I believe but are looking at possibly . She had trust issues previously when father left.). No: Suicide attempt Timing - onset: How many weeks ago (1) Contributing factors: Sig other. No: Work, Legal, Substance abuse - ETOH, Substance abuse - drugs Similar symptoms before: Diagnosis (had depression and suicidal ideation years ago as teen when her father left and parents . Gave issue of trust in people not leaving her. Spouse issue now is raising some of those trust issues and sadness/anxiety.) Recently seen: Not recently seen (no current counseling) Review of Systems Constitutional: denies: Fever Nose: denies: Rhinorrhea / runny nose, Congestion Throat: denies: Sore throat Respiratory: denies: Cough GI: denies: Abdominal Pain, Nausea, Vomiting, Diarrhea Neurologic: denies: Near syncope, Altered mental status, Headache, Head injury Endocrine: denies: Easy bruising / bleeding PD PAST MEDICAL HISTORY - Past Medical History Cardiovascular: None Respiratory: Asthma Neuro: None Endocrine/Autoimmune: None GI: None : Kidney stones Psych: Depression, Anxiety, Obsessive compulsive disorder Musculoskeletal: None Derm: None - Past Surgical History Past Surgical History: Yes HEENT: Tonsil/Adenoidectomy - Present Medications Home Medications: Ambulatory Orders Medication Instructions Recorded Confirmed Albuterol Sulfate [Albuterol 2 puffs INH Q4H PRN 08/23/19 08/23/19 Sulfate Hfa] Cetirizine [ZyrTEC] 10 mg PO DAILY 08/23/19 08/23/19 Citalopram Hydrobromide 20 mg PO DAILY 08/23/19 08/23/19 [Citalopram HBr] Fluticasone 44 Mcg [Flovent] 2 puffs INH BID 08/23/19 08/23/19 - Allergies Allergies/Adverse Reactions: Allergies Allergy/AdvReac Type Severity Reaction Status Date / Time amoxicillin Allergy Edema Verified 04/10/20 15:15 - Social History Does the pt smoke?: No Smoking Status: Never smoker Does the pt drink ETOH?: No Does the pt have substance abuse?: No - Immunizations Immunizations are current?: Yes - POLST Patient has POLST: No PD ED PE NORMAL - Vitals Vital signs reviewed: Yes - General General: Alert and oriented X 3, Well developed/nourished, Other (sd affect and tearful descrbing current situation with and likely separation. 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 2-12 intact, No motor deficit, No sensory def icit, Normal speech Eye Opening: Spontaneous Motor: Obeys Commands Verbal: Oriented GCS Score: 15 - Psych Psych: No: Normal mood, Normal affect Results - Vitals Vitals: Vital Signs - 24 hr 04/10/20 15:11 Temperature 36.6 C Heart Rate 75 Respiratory 16 Rate Blood Pressure 143/84 H O2 Saturation 96 Oxygen O2 Source Room air - Labs Labs: Laboratory Tests 04/10/20 04/10/20 04/10/20 15:23 15:28 15:28 WBC 10.9 H RBC 5.12 Hgb 14.7 Hct 45.7 MCV 89.3 MCH 28.7 MCHC 32.2 RDW 13.0 Plt Count 462 H MPV 9.1 Neut # (Auto) 6.6 Lymph # (Auto) 3.2 [place] # (Auto) 0.8 Eos # (Auto) 0.2 Baso # (Auto) 0.1 Absolute Nucleated RBC 0.00 Nucleated RBC % 0.0 Sodium 142 Potassium 3.9 Chloride 104 Carbon Dioxide 27 Anion Gap 11.0 BUN 12 Creatinine 1.0 Estimated GFR (MDRD) 68 L Glucose 98 Calcium 9.5 Total Bilirubin 0.4 AST 23 ALT 21 Alkaline Phosphatase 84 Total Protein 8.7 H Albumin 4.6 Globulin 4.1 Albumin/Globulin Ratio 1.1 Lipase 39 TSH Urine Color YELLOW Urine Clarity CLEAR Urine pH 6.0 Ur Specific [place] >=1.030 H Urine Protein NEGATIVE Urine Glucose (UA) NEGATIVE Urine Ketones NEGATIVE Urine Occult Blood NEGATIVE Urine Nitrite NEGATIVE Urine Bilirubin NEGATIVE Urine Urobilinogen 0.2 (NORMAL) Ur Leukocyte Esterase NEGATIVE Ur Microscopic Review NOT INDICATED Urine Culture Comments NOT INDICATED Urine HCG, Qual NEGATIVE Salicylates < 6.0 Urine Opiates Screen NEGATIVE Ur Oxycodone Screen NEGATIVE Urine Methadone Screen NEGATIVE Ur Propoxyphene Screen NEGATIVE Acetaminophen < 10 L Ur Barbiturates Screen NEGATIVE Ur Tricyclics Screen NEGATIVE Ur Phencyclidine Scrn NEGATIVE Ur Amphetamine Screen NEGATIVE U Methamphetamines Scrn NEGATIVE U Benzodiazepines Scrn NEGATIVE Urine Cocaine Screen NEGATIVE U Cannabinoids Screen NEGATIVE Ethyl Alcohol < 5.0 04/10/20 15:28 WBC RBC Hgb Hct MCV MCH MCHC RDW Plt Count MPV Neut # (Auto) Lymph # (Auto) [place] # (Auto) Eos # (Auto) Baso # (Auto) Absolute Nucleated RBC Nucleated RBC % Sodium Potassium Chloride Carbon Dioxide Anion Gap BUN Creatinine Estimated GFR (MDRD) Glucose Calcium Total Bilirubin AST ALT Alkaline Phosphatase Total Protein Albumin Globulin Albumin/Globulin Ratio Lipase TSH 1.58 Urine Color Urine Clarity Urine pH Ur Specific [place] Urine Protein Urine Glucose (UA) Urine Ketones Urine Occult Blood Urine Nitrite Urine Bilirubin Urine Urobilinogen Ur Leukocyte Esterase Ur Microscopic Review Urine Culture Comments Urine HCG, Qual Salicylates Urine Opiates Screen Ur Oxycodone Screen Urine Methadone Screen Ur Propoxyphene Screen Acetaminophen Ur Barbiturates Screen Ur Tricyclics Screen Ur Phencyclidine Scrn Ur Amphetamine Screen U Methamphetamines Scrn U Benzodiazepines Scrn Urine Cocaine Screen U Cannabinoids Screen Ethyl Alcohol PD MEDICAL DECISION MAKING - ED course Complexity details: considered differential, d/w patient, d/w art consultant (Social Work saw and talked with patient and able to set up next day phone appt with [facility] and then counselor for patient in next few days. ) Departure - Departure Disposition: 01 Home, Self Care Clinical Impression: Reactive depression, Depressed affect Condition: Stable Record reviewed to determine appropriate education?: Yes Instructions: ED Stress React Follow-Up: Marie Banks PA [Primary Care Provider] - Comments: Stay well-hydrated. Continue usual medications. Follow-up with counseling in the next few days. The [facility]/crisis line will call you tomorrow to see how you are doing. Return as needed. Discharge Date/Time: 04/10/20 17:52
[2020-04-10 15:33] LABS: MUDS CUTOFF CONCENTRATIONS CUTOFF CONC BELOW:
[2020-04-10 15:35] LABS: BASOPHILS # (AUTO) 0.1 10^3/uL (0.0-0.1); BASOPHILS % (AUTO) 0.6 %; EOSINOPHILS # (AUTO) 0.2 10^3/uL (0.0-0.7); EOSINOPHILS % (AUTO) 1.7 %; HGB - HEMOGLOBIN 14.7 g/dL (12.0-16.0); LYMPHOCYTES # (AUTO) 3.2 10^3/uL (1.5-3.5); LYMPHOCYTES % (AUTO) 29.6 %; MEAN CORPUSCULAR HEMOGLOBIN 28.7 pg (27.0-31.0); MEAN CORPUSCULAR HGB CONC 32.2 g/dL (32.0-36.0); MEAN CORPUSCULAR VOLUME 89.3 fL (81.0-99.0); MEAN PLATELET VOLUME 9.1 fL (7.9-10.8); MONOCYTES # (AUTO) 0.8 10^3/uL (0.0-1.0); NEUTROPHILS # (AUTO) 6.6 10^3/uL (1.5-6.6); NEUTROPHILS % (AUTO) 60.7 %; PLT - PLATELET COUNT 462 10^3/uL (130-450); RED BLOOD COUNT 5.12 10^6/uL (4.20-5.40); WHITE BLOOD COUNT 10.9 x10^3/uL (4.8-10.8)
[2020-04-10 15:37] LABS: BILIRUBIN,URINE NEGATIVE (NEGATIVE); GLUCOSE, URINE (UA) NEGATIVE (NEGATIVE); KETONES,URINE (UA) NEGATIVE (NEGATIVE); LEUKOCYTE ESTERASE, URINE NEGATIVE (NEGATIVE); NITRITE,URINE NEGATIVE (NEGATIVE); OCCULT BLOOD,URINE NEGATIVE (NEGATIVE); PROTEIN,URINE NEGATIVE (NEGATIVE); UROBILINOGEN,URINE 0.2 (NORMAL) E.U./dL (NORMAL)
[2020-04-10 15:38] LABS: CLARITY,URINE CLEAR (CLEAR)
[2020-04-10 15:39] LABS: HCG UR QUAL NEGATIVE
[2020-04-10 15:47] LABS: AMPHETAMINE SCREEN,URINE NEGATIVE (NEGATIVE); BENZODIAZEPINES SCREEN, URINE NEGATIVE (NEGATIVE); COCAINE SCREEN URINE NEGATIVE (NEGATIVE); METHADONE SCREEN, URINE NEGATIVE (NEGATIVE); METHAMPHETAMINES SCREEN, URINE NEGATIVE (NEGATIVE); OPIATE SCREEN, URINE NEGATIVE (NEGATIVE); OXYCODONE SCREEN, URINE NEGATIVE (NEGATIVE); PROPOXYPHENE SCREEN, URINE NEGATIVE (NEGATIVE); TRICYCLIC ANTIDEPRESSANT,URINE NEGATIVE (NEGATIVE)
[2020-04-10 15:51] LABS: ACETAMINOPHEN < 10 ug/mL (10-30); ALBUMIN 4.6 g/dL (3.2-5.5); ALBUMIN/GLOBULIN RATIO 1.1 (1.0-2.2); ALKALINE PHOSPHATASE 84 IU/L (42-121); ALT ALANINE AMINOTRANSFERASE 21 IU/L (10-60); AST ASPARTATE AMINOTRANSFERASE 23 IU/L (10-42); BILIRUBIN,TOTAL 0.4 mg/dL (0.2-1.0); BUN - BLOOD UREA NITROGEN 12 mg/dL (6-20); CALCIUM 9.5 mg/dL (8.5-10.3); CARBON DIOXIDE - CO2 27 mmol/L (21-32); CHLORIDE 104 mmol/L (101-111); GLUCOSE 98 mg/dL (70-100); LIPASE 39 U/L (22-51); SALICYLATE < 6.0 mg/dL; SODIUM 142 mmol/L (135-145); TOTAL PROTEIN 8.7 g/dL (6.7-8.2)
== END 2020-04-10 17:52 | disposition home or self-care (01) ==
LOC: ED 15:01
DX: F32.9 Major depressive disorder, single episode, unspecified (principal); R45.851 Suicidal ideations
CPT/HCPCS: 36415; 80053; 80306; 80307; 80320; 80329; 81001; 81003; 81025; 83690; 84443; 85025; 87086; 99283; 99284

== ENCOUNTER 2020-04-23 13:26 | Outpatient (CLI) | payer OTHER ==
--- NOTE | 2020-04-23 14:24 | Ultrasound Report ---
PROCEDURE: Pelvic w/Transvaginal INDICATIONS: RIGHT OVARIAN CYST TECHNIQUE: Real-time scanning was performed of the pelvic organs, with image documentation. Additional endovagi nal scanning was necessary due to incomplete visualization of the adnexal and endometrial structures by transabdominal scanning. COMPARISON: 02/24/2020. FINDINGS: Transabdominal scanning: Limited scanning through the kidneys shows no hydronephrosis. No pathologi c free abdominal or pelvic fluid. Endovaginal scanning: Uterus: Uterus is normal in size at 6.6 x 3.4 x 4.4 cm. The endometrium measures 4.4 mm in combined thickness. No endometrial mass or fluid is seen. No discrete uterine fibroid. Intrauterine device i s noted in its normal central endometrial location. Ovaries: Right ovary measures 3.3 x 2 x 2.2 cm in size. Left ovary measures 3.4 x 1.9 x 2 cm in size . No solid appearing ovarian lesion is seen. Less than 12 follicles are noted in bilateral ovaries. N ormal blood flow is seen in bilateral ovaries on color Doppler images. IMPRESSION: 1. Interval resolution of previously noted possible hemorrhagic cyst in left ovary. No gross abnormal ity is seen in bilateral ovaries on the current study. 2. No endometrial mass or fluid. Intrauterine device is noted in place. Reviewed by: Macario Arias MD on 04/23/2020 2:23 PM PST Approved by: Macario Arias MD on 04/23/2020 2:23 PM PST Station ID: [id number]
== END 2020-04-23 13:27 | disposition home or self-care (01) ==
LOC: DI 13:26
PROVIDERS: ATTEND Obstetrics & Gynecology
DX: N83.291 Other ovarian cyst, right side (principal)

== ENCOUNTER 2023-07-22 21:23 | Emergency (ER) | payer OTHER ==
--- NOTE | 2023-07-22 21:40 | ED Physician Documentation ---
PD HPI SKIN - Stated complaint Stated Complaint: BILAT LEGS DOG BITES - Chief complaint Chief Complaint: Laceration - History obtained from History obtained from: Patient - Additional information Additional information: 27-year-old woman presents with bilateral lower extremity dog bites. Dog is vaccinated against rabies. PD PAST MEDICAL HISTORY - Past Medical History Cardiovascular: None Respiratory: Asthma Neuro: None Endocrine/Autoimmune: None GI: None : Kidney stones Psych: Depression, Anxiety, Obsessive compulsive disorder Musculoskeletal: None Derm: None - Past Surgical History Past Surgical History: Yes HEENT: Tonsil/Adenoidectomy - Present Medications Home Medications: Ambulatory Orders Medication Instructions Recorded Confirmed Citalopram Hydrobromide 20 mg PO DAILY 08/23/19 07/22/23 [Citalopram HBr] Doxycycline Hyclate 100 mg PO BID 3 Days #6 tab 07/22/23 Levonorgestrel/Ethin.estradiol 1 tab PO DAILY 07/22/23 07/22/23 [Levonor-Eth Estrad Triphasic] metroNIDAZOLE [Flagyl] 500 mg PO TID 3 Days #9 tablet 07/22/23 - Allergies Allergies/Adverse Reactions: Allergies Allergy/AdvReac Type Severity Reaction Status Date / Time amoxicillin Allergy Edema Verified 07/22/23 21:39 - Social History Does the pt smoke?: No Smoking Status: Never smoker Does the pt drink ETOH?: No Does the pt have substance abuse?: No - Immunizations Immunizations are current?: Yes - POLST Patient has POLST: No PD ED PE NORMAL - Vitals Vital signs reviewed: Yes - General General: Alert and oriented X 3, No acute distress, Well developed/nourished - HEENT HEENT: Atraumatic, PERRL, EOMI - Derm Derm: Normal color, Warm and dry, Other (L anteromedial leg 4 puncture wounds c/w dog bites. R anterior hip flexor with 2 shallow punctures) Results - Vitals Vitals: Vital Signs - 24 hr 07/22/23 21:33 Temperature 36.8 C Heart Rate 104 H Respiratory 20 Rate Blood Pressure 140/94 H O2 Saturation 97 Oxygen O2 Source Room air PD Medical Decision Making - ED course ED course: 27yF p/w BL LE dog bites. Wounds were irrigated and dressed. X-rays showed no foreign body. she is allergic to augmentin therefore doxy/flagyl prophylaxis provided. tdap updated. return precautions given. plan to f/u with pcp. Departure - Departure Disposition: 01 Home, Self Care Clinical Impression: Dog bite Condition: Stable Instructions: ED Bite Dog Prescriptions: Doxycycline Hyclate 100 mg PO BID 3 Days #6 tab metroNIDAZOLE [Flagyl] 500 mg PO TID 3 Days #9 tablet Comments: You were seen in the emergency department for Dog bite. Your xrays looked okay. Preventative antibiotics were provided in the emergency department and sent electronically to [facility]. Note that doxycycline can cause skin changes in bright sunlight so please wear sunscreen if it's rain the next couple days. Please follow-up with your primary care provider and return to the emergency department if you have any new or worsening symptoms or other concerns. Forms: PCP List
[2023-07-22 21:45] VITALS: BP 140/94; O2SAT 97
[2023-07-22] MEDS: metroNIDAZOLE 250 MG TABLET PO STA (22:02)
[2023-07-22] MEDS: DOXYCYCLINE 100 MG TABLET PO STA (22:02)
[2023-07-22] MEDS: TETANUS/DIPHTHERIA/PERTUSSIS 0.5 ML SYRINGE IM ONE (22:02)
[2023-07-22] MEDS: MORPHINE 2 MG/ML CARPUJECT IM STA (22:23)
--- NOTE | 2023-07-22 22:30 | XRAY Report ---
PROCEDURE: Tib/Fib LT INDICATIONS: dog bite - eval for foreign body TECHNIQUE: 2 views of the tibia and fibula were acquired. COMPARISON: None. FINDINGS: Bones: No fractures or dislocations. No suspicious bony lesions. Soft tissues: No suspicious soft tissue calcifications or masses. No radiopaque foreign body. IMPRESSION: No acute bony abnormality. No radiopaque foreign body. Reviewed by: Leeroy Garcia MD on 07/22/2023 10:29 PM PDT Approved by: Leeroy Garcia MD on 07/22/2023 10:29 PM PDT Station ID: [id number]
--- NOTE | 2023-07-22 22:47 | XRAY Report ---
PROCEDURE: Femur 2+V RT INDICATIONS: dog bite TECHNIQUE: 2 views of the femur were acquired. COMPARISON: None. FINDINGS: Bones: No fractures or dislocations. No suspicious bony lesions. Soft tissues: No suspicious soft tissue calcifications or masses. No radiopaque foreign body. IMPRESSION: No acute bony abnormality. No radiopaque foreign body. Reviewed by: Leeroy Garcia MD on 07/22/2023 10:45 PM PDT Approved by: Leeroy Garcia MD on 07/22/2023 10:45 PM PDT Station ID: [id number]
[2023-07-22] MEDS: ONDANSETRON ODT 4 MG TABLET TL STA (22:51)
== END 2023-07-22 23:14 | disposition home or self-care (01) ==
LOC: ED 21:23
DX: S81.852A Open bite, left lower leg, initial encounter (principal); S81.851A Open bite, right lower leg, initial encounter; S71.051A Open bite, right hip, initial encounter; W54.0XXA Bitten by dog, initial encounter; Z23 Encounter for immunization; T36.0X5A Adverse effect of penicillins, initial encounter; T36.1X5A Adverse effect of cephalosporins and other beta-lactam antibiotics, initial encounter
CPT/HCPCS: 73552; 73590; 90471; 90715; 96374; 99283; A9270; Q0162